=== PATIENT | female | born 1990 | race African-American/Black ===

== ENCOUNTER 2017-02-23 09:57 | Emergency (ER) | payer OTHER ==
[~2017-02-23] VITALS: Ht 175.3 cm; Wt 99.8 kg
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
[2017-02-23] MEDS ORDERED: CYCL5TAB PO (11:59)
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
[2017-02-23] MEDS ORDERED: IBUPROFEN 600 MG TABLET. PO ONE (12:00)
[2017-02-23 12:13] VITALS: BP 110/59
== END 2017-02-23 12:14 | disposition home or self-care (01) ==
LOC: ER 09:57
DX: S09.8XXA Other specified injuries of head, initial encounter (principal); S16.1XXA Strain of muscle, fascia and tendon at neck level, initial encounter; M54.89 Other dorsalgia; F12.10 Cannabis abuse, uncomplicated; Z88.6 Allergy status to analgesic agent; Z88.5 Allergy status to narcotic agent; V89.2XXA Person injured in unspecified motor-vehicle accident, traffic, initial encounter; Y93.89 Activity, other specified; Y99.8 Other external cause status; Y92.89 Other specified places as the place of occurrence of the external cause
CPT/HCPCS: 70450; 72072; 72125; 99284-25